=== PATIENT | female | born 1945 | race Caucasian/White ===

== ENCOUNTER 2017-11-02 15:46 | Emergency (ER) | payer OTHER ==
[~2017-11-02] VITALS: Ht 157.5 cm; Wt 63.5 kg
[2017-11-02] MEDS ORDERED: TYLENOL325 MG PO (16:02)
[2017-11-02] MEDS ORDERED: TRAMADOL 50 MG50 MG PO (16:02)
[2017-11-02] MEDS ORDERED: LIPITOR 20 MG T20 M1 PO (16:02)
[2017-11-02] MEDS ORDERED: KEFLEX500 M1 PO (17:33)
[2017-11-02 17:53] VITALS: BP 138/99
== END 2017-11-02 17:54 | disposition home or self-care (01) ==
LOC: M.ERS 15:46
DX: S61.214A Laceration without foreign body of right ring finger without damage to nail, initial encounter (principal); W29.0XXA Contact with powered kitchen appliance, initial encounter; Y93.89 Activity, other specified; Y92.89 Other specified places as the place of occurrence of the external cause; Y99.8 Other external cause status

== ENCOUNTER → 2018-09-02 | Outpatient (CLI) | payer OTHER ==
[~2018-09-02] MED LIST: KEFLEX500 M1 PO; LIPITOR 20 MG T20 M1 PO; TRAMADOL 50 MG50 MG PO; TYLENOL325 MG PO
== END ==
LOC: M.ULTRA 08-18 07:32
DX: Z12.31 Encounter for screening mammogram for malignant neoplasm of breast (principal); M85.80 Other specified disorders of bone density and structure, unspecified site; E04.1 Nontoxic single thyroid nodule; Z78.0 Asymptomatic menopausal state

== ENCOUNTER → 2018-09-22 | Outpatient (CLI) | payer OTHER ==
--- NOTE | 2018-09-27 12:05 | PATH ---
[address] [address] PATHOLOGY RPT PROCEDURE Name: AMPARO WU [id number] Admission: 09/22/18 Date of : 43 Discharge: Report #: [id number] Path Case #: [id number] Note [facility] Accession Number: [id number] TESTS RESULT FLAG UNITS REF RANGE LAB Clinician Provided Cytology Information No. of containers..01 Other (Miscellaneous) Source: LEFT THYROID DIAGNOSIS: 02 LEFT THYROID [place] CATEGORY IV. SUSPICIOUS FOR NEOPLASM. SEE COMMENT. THIS INTERPRETATION INCLUDES EVALUATION OF A CELL BLOCK. COMMENT: THE SMEARS, THIN PREP AND CELL BLOCK SHOW A VERY CELLULAR LESION CONSISTING OF GENERALLY ISOLATED, PLASMACYTOID CELLS OCCASIONALLY HAVING MARKED VARIATION OF NUCLEAR SIZE AND WITH GENERALLY INCONSPICUOUS NUCLEOLI. VAGUE CYTOPLASMIC VACUOLIZATION IS SEEN, WITHOUT GRANULES. PROPERLY-CONTROLLED IHC (VALIDATED FOR CELL BLOCK) PERFORMED ON THE CELL BLOCK SHOW THESE CELLS TO HAVE THE FOLLOWING RESULTS: TTF1- POSITIVE SYNAPTOPHYSIN- POSITIVE (HEAVY BACKGROUND STAINING) CHROMAGRANIN- POSITIVE (HEAVY BACKGROUND STAINING) THE FINDINGS ARE SUSPICIOUS FOR NEOPLASM, POSSIBLY FOLLICULAR AND RESULTS OF THE NEUROENDOCRINE MARKERS ARE OF UNCERTAIN RELIABILITY BUT RAISE A POSSIBLITIY OF MEDULLARY CARCINOMA. REMOVAL OF THE LESION IS RECOMMENDED IF CLINICALLY INDICATED. REVIEWED WITH DR. DARELNE PETERS (CYTOPATHOLOGIST), WHO AGREES WITH THE DIAGNOSIS. DISCUSSED WITH DR. TAMMY VASQUEZ AT 1625 ON 09/24/2018. Pathologist ICD10: 02 R89.6 Signed out by: Moe Adams MD, Pathologist NPI- [id number] Performed by: Mathew Viveros, Endoscopy Tech ([facility]) Gross description: 01 19ML, RED, CLOUDY /LCS FLAG LEGEND: L-Low Normal,H-High Normal,LL-Alert Low,HH-Alert High <-Panic Low,>-Panic High,A-Abnormal,AA-Critical Abnormal Performed at: [facility] [address] [place] [address] [place] [address] PATHOLOGY RPT PROCEDURE Name: AMPARO WU [facility] [id number] Admission: 09/22/18 Date of : 43 Discharge: Report #: [id number] Path Case #: [id number] Ruben Gan MD, 02 [facility] [address], [place] [address] Moe Adams MD, Specimen Comment: A courtesy copy of this report has been sent to Specimen Comment: [phone]. Specimen Comment: Report sent to Specimen Comment: A duplicate report has been generated due to demographic updates. Performed at: [address], [place], [place] [id number] MD Ruben Gan MD Phone: [phone]
== END | disposition home or self-care (01) ==
LOC: M.ULTRA 07:59
DX: E04.1 Nontoxic single thyroid nodule (principal); R89.6 Abnormal cytological findings in specimens from other organs, systems and tissues; Z79.899 Other long term (current) drug therapy

== ENCOUNTER 2019-04-13 11:46 | Inpatient (IN) | payer OTHER ==
[2019-04-13] VITALS (14 sets, daily range): BP systolic 110–173; BP diastolic 50–99
[~2019-04-13] VITALS: Ht 157.5 cm; Wt 68.0 kg
--- NOTE | ~2019-04-13 | CON ---
[facility] [address] [place] [address] CONSULTATION Name: AMPARO WU Room: [address] IN .R.#: [id number] Admission: 04/13/19 Attend Phys: Vaishali Garvin Discharge: Date of : 43 Report #: [id number] THIS REPORT FOR: //name// CC: Janina Ramos DICTATED BY: Gloria Pisano [facility] DATE OF SERVICE: 04/14/2019 Please note at the time of this dictation, the patient was seen and physically examined by myself. HISTORY OF PRESENT ILLNESS: This is a 73-year-old female who presented to the Emergency Room after seeing her primary care provider, Dr. Janina Fung, earlier in the day for which she went to see her because she was noticing some bright red blood and some clots noted in her stool. She states she noted this starting on Thursday, continuing on Thursday and went and saw her PCP then on Thursday morning and then was asked to come here to the Emergency Room. The patient states normally her bowels move soft and formed once or twice a day and this is the first time she has ever had any of this happen. She denies any abdominal pain, fever or chills or any other issues at this time. The patient did have a colonoscopy back in 2005. It showed diverticulosis of the colon with 10-year recall. Attempts were made but never heard back from the patient. She states she did a Cologuard test about 2 years ago and that was negative. ALLERGIES: No known drug allergies. MEDICATIONS: From home include vitamin D, folic acid, B12, Mobic and Lipitor. PAST MEDICAL HISTORY: Hyperlipidemia, arthritic pain. PAST SURGICAL HISTORY: Left-sided carcinoma of the thyroid back in 2019 earlier this year and back surgery. FAMILY HISTORY: Negative for any GI or female cancers. SOCIAL HISTORY: Socially alcohol on occasion. Otherwise, negative for tobacco or illegal drug use. REVIEW OF SYSTEMS: Twelve-point review of systems is essentially negative except what is mentioned in the HPI. PHYSICAL EXAMINATION: VITAL SIGNS: Temperature 36.7, pulse 93, respirations 16, [place] [address] CONSULTATION Name: AMPARO WU Room: [address]#: [id number] Admission: 04/13/19 Attend Phys: Vaishali Garvin Discharge: Date of : 43 Report #: [id number] 128/59. HEART: Regular rate and rhythm. LUNGS: Clear. ABDOMEN: Soft, positive bowel sounds in all 4 quadrants with no masses or tenderness noted. LABORATORY DATA: It is noted that back in 2016 her hemoglobin was 15.5, on admission she was 13.5, this morning she is 10.9. White count of 15.5, platelets of 229. GFR is 98. LFTs are completely normal. The patient did have a CTA that showed active extravasation in the splenic flexure from a diverticulum. She was then sent to Interventional Radiology and Dr. Reeves was able to embolize that particular vessel with a coil to stop her bleeding. IMPRESSION: 1. Gastrointestinal bleed, diverticulum in the splenic flexure. 2. Nausea. 3. Bright red blood in the stool. PLAN: 1. We will continue to monitor H and H. 2. Clear liquid diet. 3. Monitor for any overt bleeding. 4. Discussion with the patient. She would prefer to have her colonoscopy done as an outpatient later on. 5. Further recommendations to be made once the patient has been seen by Dr. Snider. Thank you for allowing us to participate in this patient's care. Please do not hesitate to call with any questions in regard to this consult. Please note that the patient is in the Progressive Care Unit at the time of this dictation. By: 0903 1911Mulugeta Snider MD /rox
[2019-04-13] MEDS ORDERED: VITAMIN B-12500 MCG PO (11:57)
[2019-04-13] MEDS ORDERED: VITAMIN D5000 UNIT PO (11:57)
[2019-04-13] MEDS ORDERED: FOLIC ACID1 MG PO (11:57)
[2019-04-13] MEDS ORDERED: MOBIC15 MG PO (11:57)
[2019-04-13 12:27] LABS: ABSOLUTE BASOPHILS 0.1 thou/uL (0.0-0.2); ABSOLUTE EOSINOPHILS 0.1 thou/uL (0.0-0.7); ABSOLUTE LYMPHOCYTES 2.3 thou/uL (0.8-5.3); ABSOLUTE MONOCYTES 0.7 thou/uL (0.0-1.2); ABSOLUTE NEUTROPHILS 4.8 thou/uL (1.6-8.1); BASOPHILS 0.7 %; EOSINOPHILS 1.5 %; HEMATOCRIT 40.6 % (37.0-47.0); HEMOGLOBIN 13.5 gm/dL (12.0-15.0); LYMPHOCYTES 28.9 %; MCH 30.3 pg (26.0-34.0); MCHC 33.3 g/dL (28.0-37.0); MONOCYTES 8.7 %; MPV 8.2 fl. (7.2-11.1); NUCLEATED RBCS 0 /100WBC; PLATELET COUNT* 263 thou/uL (150-400); POLYS 60.2 %; RBC 4.47 mil/uL (4.20-5.00)
[2019-04-13 12:45] LABS: ANION GAP 11 mmol/L (7-16); BUN 21 mg/dL (7-18); CALCIUM 9.7 mg/dL (8.5-10.1); CHLORIDE 101 mmol/L (98-107); CO2 26 mmol/L (21-32); CREATININE 0.9 mg/dL (0.6-1.3); GLUCOSE 91 mg/dL (70-99); SODIUM 138 mmol/L (136-145)
[2019-04-13 12:49] LABS: ALBUMIN 3.7 g/dL (3.4-5.0); ALKALINE PHOSPHATASE 102 U/L (46-116); LIPASE 172 U/L (73-393); SGOT 20 U/L (15-37); SGPT 22 U/L (30-65); TOTAL BILIRUBIN 0.4 mg/dL (<0.1-1.0); TOTAL PROTEIN 7.9 g/dL (6.4-8.2); TROPONIN-I LEVEL <0.06 ng/mL (<0.06)
[2019-04-13 13:06] LABS: INR 1.1; PROTIME 10.4 Seconds (9.20-11.50)
--- NOTE | 2019-04-13 13:23 | NUR ---
DAVID NOTIFIED UPON PT RETURN FROM CT. PT CONNECTED TO BP AND PULSE OX SHE WAS PRIOR TO GOING TO CT
[2019-04-13 13:42] LABS: URINE BILIRUBIN NEGATIVE (Negative); URINE BLOOD 3+ (Negative); URINE CLARITY CLEAR; URINE COLOR YELLOW; URINE GLUCOSE-RANDOM NEGATIVE (Negative); URINE KETONES NEGATIVE (Negative); URINE LEUKOCYTES-REFLEX NEGATIVE (Negative); URINE NITRITE-REFLEX NEGATIVE (Negative); URINE PROTEIN NEGATIVE (Negative); URINE UROBILINOGEN 0.2 E.U./dl (0.2-1.0)
[2019-04-13 13:54] LABS: BACTERIA-REFLEX 1-9 Few /HPF (None Seen); CASTS None Seen /LPF (None Seen); CRYSTALS None Seen /LPF (None Seen); MUCUS None Seen strn/LPF (None Seen); SQUAMOUS 4-10 Moderate /LPF (0-3); URINE WBC-REFLEX 0-5 Rare /HPF (0-5)
--- NOTE | 2019-04-13 15:23 | EKG ---
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1945 Requested By: Juventino Logan Order Number: [id number] MD: Dar Sierra Measurements Intervals [place] Rate: 97 P: 42 MD: 140 QRS: 46 QRSD: 99 T: 28 QT: 386 QTc: 491 Interpretive Statements Sinus rhythm Atrial premature complexes in couplets Low voltage, precordial leads No previous ECG available for comparison Electronically Signed On 04-13-2019 15:23:14 CDT by Dar Sierra [email or web address] <ELECTRONICALLY SIGNED> By: Dar Sierra MD, [facility] 04/13/19 1523 1238 1238 Dar Sierra MD, [facility] /EPI
--- NOTE | 2019-04-13 17:28 | NUR ---
RECEIVED REPORT FROM DAVID AND ASSUMED CARE OF PT @ 8538.PT IS A/O X4,VSS,TRACING SR WITH PVC ON THE MONITOR.IV PATENT WITH IVF INFUSING PER ORDERS.PT IS CALM AND COOPERATIVE WITH NO C/O PAIN.RIGHT GROIN SITE CLEAN,DRY, AND INTACT.POST VITALS COMPLETED.PT IS BEDREST UNTIL 1999.PT INSTRUCTED ON BLEEDING SIGNS AND SYMPTOMS.PT INFORMED OF PLAN OF CARE AND COMMUNICATES UNDERSTANDING.HOURLY ROUNDING COMPLETED FOR PT SAFETY.CALL LIGHT WITHIN REACH.WILL CONTINUE TO MONITOR FOR DURATION OF SHIFT.
[2019-04-14 00:52] VITALS: BP 145/75
[2019-04-14 04:00] VITALS: BP 120/59
[2019-04-14 05:00] LABS: MCH 30.1 pg (26.0-34.0); MCV 91.3 fL (80.0-100.0); MPV 8.6 fl. (7.2-11.1); RBC 3.62 mil/uL (4.20-5.00); RDW-CV 14.1 % (10.5-14.5); WBC 15.5 thou/uL (4.0-11.0)
[2019-04-14 05:09] LABS: CALCIUM 8.8 mg/dL (8.5-10.1); CREATININE 0.6 mg/dL (0.6-1.3); POTASSIUM 4.3 mmol/L (3.5-5.1)
[2019-04-14 05:20] LABS: HEMOGLOBIN 10.9 gm/dL (12.0-15.0)
--- NOTE | 2019-04-14 06:26 | NUR ---
PT SLEPT MOST OF SHIFT. ASSESSMENT DOCUMENTED. MEDS GIVEN PER E-MAR. IV PATENT, FLUIDS INFUSING. NO REPORTS OF PAIN. RIGHT GROIN SITE REMAINED C/D/I, NO SIGNS OF HEMATOMA. PT REPORTED NAUSEA THIS SHIFT, NAUSEA MEDS GIVEN PER E-MAR WITH RELIEF. PT REPORTS HAVING BLODDY STOOL. WILL CONTINUE WITH PLAN OF CARE.
[2019-04-14 12:00] VITALS: BP 122/75
--- NOTE | 2019-04-14 14:05 | NUR ---
Pt is A&O. Resides at home alone. Active and independent. No DME. No hx of HH or SNF. Goal is home at dc, no needs anticipated. Following.
[2019-04-14 16:00] VITALS: BP 154/68
--- NOTE | 2019-04-14 19:03 | NUR ---
PT UP AD DICK IN ROOM TODAY. NO C/O OF PAIN OR SOA. WILL POSSIBLY GO HOME IN AM.
[2019-04-14 20:00] VITALS: BP 133/79
[2019-04-15] VITALS: BP 136/70
[2019-04-15 04:00] VITALS: BP 115/64
[2019-04-15 07:48] LABS: HEMATOCRIT 30.2 % (37.0-47.0); HEMOGLOBIN 10.4 gm/dL (12.0-15.0); MCHC 34.4 g/dL (28.0-37.0); MCV 90.2 fL (80.0-100.0); MPV 8.3 fl. (7.2-11.1); RBC 3.35 mil/uL (4.20-5.00); RDW-CV 13.9 % (10.5-14.5); WBC 13.1 thou/uL (4.0-11.0)
[2019-04-15 08:00] VITALS: BP 155/66
[2019-04-15 09:52] VITALS: BP 155/66
--- NOTE | 2019-04-15 10:23 | NUR ---
RECEIVED REPORT FROM LEIF CALI. ASSUMED CARE OF PT AROUND 0730. PT A&O X4. VSS. TANK BUILDER IN PLACE TRACING SR. AM ASSESSMENT AND VITALS COMPLETED CHARTED. PT DENIES PAIN OR DISCOMFORT. ABLE TO EAT LOW RESIDUE BREAKFAST THIS MORNING WITHOUT ISSUE. DISCHARGE ORDERS RECEIVED. DISCHARGE COMPLETED CHARTED. DISCHARGE SUMMARY GONE OVER WITH PT, PT COMMUNICATES UNDERSTANDING. PT AWARE OF F/U APPOINTMENTS. PT EDUCATED ON LOW RESIDUE DIET PER DR ORDER. IV AND TANK BUILDER REMOVED. ALL BELONGINGS GATHERED AND LEAVING WITH PT. WCTM PT TILL PT READY TO LEAVE UNIT. PT WAITING FOR RIDE.
--- NOTE | 2019-04-15 11:29 | NUR ---
PT LEFT UNIT WALKING WITH NURSING STAFF. PT LEFT UNIT IN CAR WITH FAMILY.
== END 2019-04-15 11:15 | disposition home or self-care (01) | DRG 357 ==
LOC: M.ERS 11:46 → M.TBA-ER 13:27 → M.2W 15:59
PROVIDERS: Family Medicine; ADMIT Internal Medicine
PROC: B4141ZZ Fluoroscopy of Superior Mesenteric Artery using Low Osmolar Contrast (ICD-10-PCS; principal; 2019-04-13)
PROC: 04L53DZ Occlusion of Superior Mesenteric Artery with Intraluminal Device, Percutaneous Approach (ICD-10-PCS; principal; 2019-04-13)
DX: K57.31 Diverticulosis of large intestine without perforation or abscess with bleeding (principal); D62 Acute posthemorrhagic anemia; E78.5 Hyperlipidemia, unspecified; M19.90 Unspecified osteoarthritis, unspecified site; M81.0 Age-related osteoporosis without current pathological fracture; Z96.698 Presence of other orthopedic joint implants; Z82.49 Family history of ischemic heart disease and other diseases of the circulatory system; Z80.7 Family history of other malignant neoplasms of lymphoid, hematopoietic and related tissues

== ENCOUNTER → 2019-05-24 | Outpatient (CLI) | payer OTHER ==
[~2019-05-24] MED LIST changes: +FOLIC ACID1 MG PO; +MOBIC15 MG PO; +VITAMIN B-12500 MCG PO; +VITAMIN D5000 UNIT PO
--- NOTE | 2019-05-24 17:14 | CARDNUC ---
[place] [address] CARDIAC NUCLEAR IMAGING REPORT Name: BRYCEAMPARO Malcolm Room: [facility]#: [id number] Admission: 05/24/19 Attend Phys: Krish Mclean, Discharge: Date of : 43 Date of Service: 05/24/19 1714 Report #: [id number] THIS REPORT FOR: //name// APPROVED REPORT Imaging Protocol: Rest Tc-99m/Stress Tc-99m 1 day Study performed: 05/24/2019 09:12:16 Indication: Dyspnea, Abnormal EKG. Patient Location: Out-Patient Stress Tech: Faiza Sin Stress Nurse: Rama Hwang RN NM Tech:KOKI Syed Ht: 5 ft 3 in Wt: 143 lbs BSA: 1.68 m2 BMI: 25.32 Medical History Medical History: SOB, ABN EKG, PAC'S, Hyperlipidemia. Medications: Lipitor Allergies: No known drug allergies Cardiac Risk Factors: Age, FHX of CAD, Hyperlipidemia, SOB. Previous Cardiac Procedures: None Pretest Chest Pain Characteristics: No chest pain Exercise History: Indeterminate Physical Disabilities: Arthritis Meds Held (24 hrs): None Resting Data Rest SPECT myocardial perfusion imaging was performed in supine position 30 minutes following the intravenous injection of 11.8 mCi of Tc-99m Sestamibi. Time of rest injection: 744 Date: 05/24/2019 The images were gated to evaluate regional wall motion and calculate left ventricular ejection fraction. Administration Route: IV Administration Site: Right AC Exercise Stress At peak stress, the patient was injected intravenously with 36.0mCi of Tc-99m Sestamibi. Time of stress injection: 924 Date: 05/24/2019 Administration Route: IV Administration Site: Right AC Gated Stress SPECT was performed 30 [place] [address] CARDIAC NUCLEAR IMAGING REPORT Name: AMPARO WU Room: [facility]#: [id number] Admission: 05/24/19 Attend Phys: JarrettYogi Yaw Vinay, Discharge: Date of : 43 Date of Service: 05/24/19 1714 Report #: [id number] injection. The images were gated to evaluate regional wall motion and calculate left ventricular ejection fraction. Prone imaging was performed. Stress Test Details Stress Test: Exercise stress testing was performed using a Ministerio protocol. HR Max Heart Rate (APMHR): 146 bpm Resting HR: 80 bpm Target HR (85% APMHR): 124 bpm Max HR Achieved: 148 bpm % of APMHR: 101 Recovery HR: 98 bpm BP Resting BP: 139/97 mmHg Max BP: 207/96 mmHg Recovery BP: 168/100 mmHg ECG Resting ECG: Sinus Rhythm Stress ECG: Sinus Tachycardia ST Change: None Arrhythmia: APC's, VPC's Recovery ECG: Sinus Rhythm Recovery ST Change: None, ST Elevation Recovery Arrhythmia: APC's, VPC's Clinical Reason for Termination: Completed protocol, Target HR achieved. Stress Symptoms: Labored breathing, Leg Fatigue. Exercise duration: 5 min 30 sec Exercise capacity: 6.19 METs The patient had moderate fatigue with standard Ministerio protocol exercise without significant chest pain. Nurse Comments 73 year old female presented for Ministerio Protocol Nuclear Stress test r/t dyspnea, ABN EKG with PAC's. Patient tolerated walking on treadmill until the second stage which she stated was too fast for her. Treadmill speed and incline were reduced to allow patient to continue walking until she requested to stop due to fatigue and arthritis pain. Recovery was unremarkable. Patient was escorted by staff to Nuclear Medicine for images. Patient was stable with no [place] [address] CARDIAC NUCLEAR IMAGING REPORT Name: AMPARO WU Malcolm Room: [facility]#: [id number] Admission: 05/24/19 Attend Phys: Krish Mclean, Discharge: Date of : 43 Date of Service: 05/24/19 1714 Report #: [id number] Stress ECG Conclusion The baseline 12-lead EKG shows sinus rhythm with occasional premature atrial and premature ventricular contractions. No significant ST or T-wave abnormalities were noted. EKGs obtained during and post standard Ministerio protocol exercise show sinus rhythm and sinus tachycardia without significant ST or T wave changes when compared to baseline. There were persistent premature atrial and premature ventricular contractions. No sustained arrhythmias were noted. Study Quality Study: Good Artifact: No artifact Study Data At rest, the left ventricular ejection fraction was 74%.. Post stress, the left ventricular ejection was 65%.. TID = 1.15. Perfusion Perfusion images show no significant fixed or reversible defects. Wall Motion Normal left ventricular wall motion. Nuclear Conclusion ECG Findings: negative for ischemia Clinical Findings: negative for ischemia Nuclear Findings: negative for ischemia Exercise Capacity: limited Left Ventricular Function: normal Risk Study: low Myocardial perfusion images show no defect to suggest infarct or ischemia. Left ventricular systolic function appears normal on gated studies. This is a low risk study. <Conclusion> The baseline 12-lead EKG shows sinus rhythm with occasional premature atrial and premature ventricular contractions. No significant ST or T-wave abnormalities were noted. EKGs obtained during and post standard Ministerio protocol exercise show sinus rhythm and sinus tachycardia without significant ST or T wave [place] [address] CARDIAC NUCLEAR IMAGING REPORT Name: AMPARO WU Room: [facility] Christ#: [id number] Admission: 05/24/19 Attend Phys: Krish Mclean, Discharge: Date of : 43 Date of Service: 05/24/19 1714 Report #: [id number] baseline. There were persistent premature atrial and premature ventricular contractions. No sustained arrhythmias were noted. <ELECTRONICALLY SIGNED> By: Jean Carlos Jurado MD, [facility] 05/24/191713 13 13 Jean Carlos Jurado MD, FACC /INF
== END ==
LOC: M.NUC 05-11 08:47
DX: I49.1 Atrial premature depolarization (principal); E78.5 Hyperlipidemia, unspecified; Z79.899 Other long term (current) drug therapy

== ENCOUNTER → 2019-10-05 | Outpatient (CLI) | payer OTHER | LOC: M.RAD 16:30 | DX: Z12.31 Encounter for screening mammogram for malignant neoplasm of breast (principal) ==

== ENCOUNTER 2020-02-13 11:56 | Emergency (ER) | payer OTHER ==
[~2020-02-13] VITALS: Ht 157.5 cm; Wt 65.8 kg
[2020-02-13] MEDS ORDERED: MOBIC7.5 MG PO (12:04)
[2020-02-13 12:20] LABS: ABSOLUTE EOSINOPHILS 0.1 thou/uL (0.0-0.7); ABSOLUTE LYMPHOCYTES 2.6 thou/uL (0.8-5.3); ABSOLUTE MONOCYTES 0.6 thou/uL (0.0-1.2); ABSOLUTE NEUTROPHILS 4.4 thou/uL (1.6-8.1); BASOPHILS 0.4 %; EOSINOPHILS 1.2 %; HEMATOCRIT 39.4 % (37.0-47.0); HEMOGLOBIN 13.4 gm/dL (12.0-15.0); LYMPHOCYTES 34.2 %; MCV 91.4 fL (80.0-100.0); MONOCYTES 7.9 %; NUCLEATED RBCS 0 /100WBC; PLATELET COUNT* 263 thou/uL (150-400); POLYS 56.3 %; RBC 4.32 mil/uL (4.20-5.00); RDW-CV 14.1 % (10.5-14.5); WBC 7.7 thou/uL (4.0-11.0)
[2020-02-13 12:29] LABS: APTT 23.1 Seconds (25.0-31.3); INR 1.1
[2020-02-13 12:37] LABS: CALCIUM 8.5 mg/dL (8.5-10.1); CREATININE 0.7 mg/dL (0.6-1.3); POTASSIUM 3.5 mmol/L (3.5-5.1)
[2020-02-13 12:44] LABS: ALBUMIN 2.9 g/dL (3.4-5.0); TOTAL BILIRUBIN 0.2 mg/dL (<0.1-1.0); TOTAL PROTEIN 6.9 g/dL (6.4-8.2)
[2020-02-13 13:57] LABS: URINE BILIRUBIN NEGATIVE (Negative); URINE BLOOD NEGATIVE (Negative); URINE CLARITY CLEAR; URINE COLOR YELLOW; URINE GLUCOSE-RANDOM NEGATIVE (Negative); URINE KETONES NEGATIVE (Negative); URINE LEUKOCYTES-REFLEX NEGATIVE (Negative); URINE NITRITE-REFLEX NEGATIVE (Negative); URINE PROTEIN NEGATIVE (Negative); URINE UROBILINOGEN 0.2 E.U./dl (0.2-1.0)
[2020-02-13] MEDS ORDERED: NORCO 5-325 TA1 EAC1 PO (14:49)
[2020-02-13 15:21] VITALS: BP 164/98
--- NOTE | 2020-02-14 07:26 | EKG ---
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 : 1945 Requested By: Sharon Malone Order Number: [id number] MD: Jean Carlos Jurado Measurements Intervals [place] Rate: 71 P: 48 IN: 142 QRS: 77 QRSD: 117 T: 23 QT: 422 QTc: 459 Interpretive Statements Sinus rhythm Possible left atrial enlargement Incomplete right bundle branch block Artifact in lead(s) I,III,aVL,aVF Compared to ECG 04/13/2019 12:38:30 Incomplete right bundle-branch block now present Atrial premature complex(es) no longer present Electronically Signed On 02-14-2020 7:24:57 CDT by Jean Carlos Jurado [email or web address] <ELECTRONICALLY SIGNED> By: Jean Carlos Jurado MD, FAC 02/14/20 0724 1203 120 Jean Carlos Jurado MD, [facility] /EPI
== END 2020-02-13 15:22 | disposition home or self-care (01) ==
LOC: M.ERS 11:56
PROVIDERS: Physician Assistant
DX: S42.001A Fracture of unspecified part of right clavicle, initial encounter for closed fracture (principal); R55 Syncope and collapse; M25.511 Pain in right shoulder; X58.XXXA Exposure to other specified factors, initial encounter; Y93.89 Activity, other specified; Y99.8 Other external cause status; Y92.89 Other specified places as the place of occurrence of the external cause

== ENCOUNTER 2020-11-15 07:22 | Inpatient (IN) | payer OTHER ==
[~2020-11-15] VITALS: Ht 157.5 cm; Wt 67.9 kg
[~2020-11-15 07:22] MED LIST changes: +MOBIC7.5 MG PO; +NORCO 5-325 TA1 EAC1 PO
[2020-11-15 07:28] VITALS: BP 172/73
[2020-11-15 08:07] LABS: ABSOLUTE EOSINOPHILS 0.2 thou/uL (0.0-0.7); ABSOLUTE LYMPHOCYTES 1.8 thou/uL (0.8-5.3); ABSOLUTE MONOCYTES 0.5 thou/uL (0.0-1.2); ABSOLUTE NEUTROPHILS 3.4 thou/uL (1.6-8.1); BASOPHILS 0.5 %; EOSINOPHILS 3.6 %; HEMATOCRIT 42.1 % (37.0-47.0); HEMOGLOBIN 13.8 gm/dL (12.0-15.0); LYMPHOCYTES 30.4 %; MCH 29.6 pg (26.0-34.0); MCHC 32.9 g/dL (28.0-37.0); MCV 90.1 fL (80.0-100.0); MONOCYTES 8.8 %; MPV 7.6 fl. (7.2-11.1); NUCLEATED RBCS 0 /100WBC; PLATELET COUNT* 292 thou/uL (150-400); POLYS 56.7 %; RBC 4.67 mil/uL (4.20-5.00); RDW-CV 14.4 % (10.5-14.5)
[2020-11-15 08:16] LABS: CALCIUM 8.7 mg/dL (8.5-10.1); CREATININE 0.8 mg/dL (0.6-1.3); POTASSIUM 3.7 mmol/L (3.5-5.1)
[2020-11-15 08:20] LABS: ALBUMIN 3.2 g/dL (3.4-5.0); TOTAL BILIRUBIN 0.4 mg/dL (<0.1-1.0); TOTAL PROTEIN 7.3 g/dL (6.4-8.2)
[2020-11-15 08:23] LABS: URINE BILIRUBIN NEGATIVE (Negative); URINE BLOOD 2+ (Negative); URINE CLARITY CLEAR; URINE COLOR YELLOW; URINE GLUCOSE-RANDOM NEGATIVE (Negative); URINE KETONES NEGATIVE (Negative); URINE LEUKOCYTES-REFLEX NEGATIVE (Negative); URINE NITRITE-REFLEX NEGATIVE (Negative); URINE PROTEIN NEGATIVE (Negative); URINE SPECIFIC GRAVITY 1.015 (1.005-1.030); URINE UROBILINOGEN 0.2 E.U./dl (0.2-1.0)
[2020-11-15 08:31] LABS: BACTERIA-REFLEX 1-9 Few /HPF (None Seen); CASTS None Seen /LPF (None Seen); MUCUS 0-3 Light strn/LPF (None Seen); SQUAMOUS 0-3 Few /LPF (0-3); URINE RBC 3-10 Few /HPF (0-2); URINE WBC-REFLEX 0-5 Rare /HPF (0-5)
[2020-11-15 08:32] LABS: CRYSTALS None Seen /LPF (None Seen)
[2020-11-15 09:19] VITALS: BP 135/61
[2020-11-15 09:45] VITALS: BP 167/72
[2020-11-15 16:32] VITALS: BP 132/55
--- NOTE | 2020-11-15 16:55 | EKG ---
[place] [address] ELECTROCARDIOGRAM REPORT Name: BRYCEAMPARO Malcolm Room: [address] ADM IN ..#: [id number] Admission: 11/15/20 Attend Phys: Brock Duncan, Discharge: Date of : 43 Date of Service: 11/15/20 0827 Report #: [id number] THIS REPORT FOR: //name// [facility] ED Test Date: 2020-11-15 Test Time: 08:27:46 Pat Name: AMPARO WU Department: Room: 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1945 Requested By: Segun Aguilar Order Number: [id number] MD: Jean Carlos Jurado Measurements Intervals [place] Rate: 79 P: 52 GA: 137 QRS: 90 QRSD: 118 T: 59 QT: 416 QTc: 477 Interpretive Statements Sinus rhythm Incomplete right bundle branch block Baseline wander in lead(s) II,III,aVR,aVL,aVF Compared to ECG 02/13/2020 12:03:24 No significant changes Electronically Signed On 11-15-2020 16:55:17 GATE TENDER by Jean Carlos Jurado [email or web address] <ELECTRONICALLY SIGNED> By: Jean Carlos Jurado MD, FACC 11/15/20 1655 6 6 Jean Carlos Jurado MD, [facility] /EPI
[2020-11-15 20:00] VITALS: BP 147/69
[2020-11-15 23:42] VITALS: BP 133/67
[2020-11-16 03:57] VITALS: BP 144/54
[2020-11-16 04:11] LABS: ABSOLUTE EOSINOPHILS 0.1 thou/uL (0.0-0.7); ABSOLUTE LYMPHOCYTES 1.5 thou/uL (0.8-5.3); ABSOLUTE MONOCYTES 0.5 thou/uL (0.0-1.2); ABSOLUTE NEUTROPHILS 5.4 thou/uL (1.6-8.1); BASOPHILS 0.2 %; HEMATOCRIT 37.6 % (37.0-47.0); HEMOGLOBIN 12.4 gm/dL (12.0-15.0); MCH 29.8 pg (26.0-34.0); MCHC 32.9 g/dL (28.0-37.0); MCV 90.7 fL (80.0-100.0); NUCLEATED RBCS 0 /100WBC; PLATELET COUNT* 246 thou/uL (150-400); POLYS 71.8 %; RBC 4.15 mil/uL (4.20-5.00); RDW-CV 14.2 % (10.5-14.5); WBC 7.5 thou/uL (4.0-11.0)
[2020-11-16 04:24] LABS: CALCIUM 9.2 mg/dL (8.5-10.1); CREATININE 0.8 mg/dL (0.6-1.3)
[2020-11-16 07:55] VITALS: BP 144/69
[2020-11-16 19:55] VITALS: BP 126/62
[2020-11-17] VITALS: BP 145/83
[2020-11-17 04:00] VITALS: BP 135/65
[2020-11-17 04:53] LABS: HEMATOCRIT 38.7 % (37.0-47.0); HEMOGLOBIN 12.9 gm/dL (12.0-15.0); MCH 29.7 pg (26.0-34.0); MCHC 33.5 g/dL (28.0-37.0); MCV 88.9 fL (80.0-100.0); MPV 8.1 fl. (7.2-11.1); RBC 4.35 mil/uL (4.20-5.00); RDW-CV 14.1 % (10.5-14.5); WBC 6.3 thou/uL (4.0-11.0)
[2020-11-17 08:00] VITALS: BP 154/72
[2020-11-17 12:00] VITALS: BP 147/68
[2020-11-17 16:00] VITALS: BP 131/44
[2020-11-17 20:00] VITALS: BP 135/76
[2020-11-18] VITALS: BP 124/57
[2020-11-18 04:00] VITALS: BP 121/59
[2020-11-18 05:19] LABS: ALBUMIN 2.8 g/dL (3.4-5.0); CALCIUM 9.1 mg/dL (8.5-10.1); CREATININE 0.8 mg/dL (0.6-1.3); POTASSIUM 3.7 mmol/L (3.5-5.1); TOTAL BILIRUBIN 0.4 mg/dL (<0.1-1.0); TOTAL PROTEIN 6.5 g/dL (6.4-8.2)
[2020-11-18 07:55] VITALS: BP 149/80
[2020-11-18 11:27] LABS: ABSOLUTE EOSINOPHILS 0.1 thou/uL (0.0-0.7); ABSOLUTE LYMPHOCYTES 1.6 thou/uL (0.8-5.3); ABSOLUTE MONOCYTES 0.7 thou/uL (0.0-1.2); ABSOLUTE NEUTROPHILS 4.4 thou/uL (1.6-8.1); BASOPHILS 0.7 %; EOSINOPHILS 1.8 %; HEMATOCRIT 40.3 % (37.0-47.0); HEMOGLOBIN 13.3 gm/dL (12.0-15.0); LYMPHOCYTES 22.8 %; MCH 29.7 pg (26.0-34.0); MCHC 32.9 g/dL (28.0-37.0); MCV 90.4 fL (80.0-100.0); MONOCYTES 10.7 %; MPV 7.6 fl. (7.2-11.1); NUCLEATED RBCS 0 /100WBC; PLATELET COUNT* 268 thou/uL (150-400); RBC 4.46 mil/uL (4.20-5.00); RDW-CV 14.3 % (10.5-14.5); WBC 6.9 thou/uL (4.0-11.0)
[2020-11-18 12:00] VITALS: BP 134/63
[2020-11-18 12:14] VITALS: BP 149/80
== END 2020-11-18 14:12 | disposition home or self-care (01) | DRG 378 ==
LOC: M.ERS 07:22 → M.2W 07:56 → M.TBA-ER 07:56 → M.2W 09:37
PROVIDERS: Emergency Medicine Emergency Medical Services; Internal Medicine Gastroenterology; ADMIT Internal Medicine; ATTEND Internal Medicine
PROC: 0DJD8ZZ Inspection of Lower Intestinal Tract, Via Natural or Artificial Opening Endoscopic (ICD-10-PCS; principal; 2020-11-16)
DX: K57.31 Diverticulosis of large intestine without perforation or abscess with bleeding (principal); E44.1 Mild protein-calorie malnutrition; M19.90 Unspecified osteoarthritis, unspecified site; M81.0 Age-related osteoporosis without current pathological fracture; K64.8 Other hemorrhoids; Z20.822 Contact with and (suspected) exposure to COVID-19; Z79.899 Other long term (current) drug therapy; Z98.1 Arthrodesis status; Z72.89 Other problems related to lifestyle; Z68.27 Body mass index [BMI] 27.0-27.9, adult

== ENCOUNTER → 2021-03-21 | Outpatient (CLI) | payer OTHER | LOC: M.RAD 08:00 | PROVIDERS: ATTEND Internal Medicine | DX: Z12.31 Encounter for screening mammogram for malignant neoplasm of breast (principal) ==